=== PATIENT | female | born 1965 | race Caucasian/White ===

== ENCOUNTER 2018-03-08 13:46 | Emergency (ER) | payer BC ==
[~2018-03-08] VITALS: Ht 175.3 cm; Wt 96.9 kg
[~2018-03-08 13:46] MED LIST: ASPIR-LOW81 MG PO; PROZAC10 MG PO; TAMOXIFEN CITRA20 MG PO
[2018-03-08 15:07] LABS: HEMATOCRIT 38.5 % (36.0-46.0); HEMOGLOBIN 13.4 G/DL (11.9-15.5); MCH 32.3 PG (29.0-34.0); MCHC 34.8 G/DL (30.0-36.0); MCV 92.8 FL (83-99); PLATELET COUNT 211 K/uL (156-360); RBC DIS.WIDTH-CV 13.1 % (11.8-14.6); RBC DIS.WIDTH-SD 44.7 % (39-53); RED BLOOD COUNT 4.15 M/uL (3.80-5.20)
[2018-03-08 15:17] LABS: CHLORIDE 107 mEq/L (99-109); POTASSIUM 4.1 mEq/L (3.7-5.4); SODIUM 141 mEq/L (136-147)
[2018-03-08 15:18] LABS: GLUCOSE 97 mg/dL (70-99)
[2018-03-08 15:22] LABS: CREATININE 0.8 mg/dL (0.6-1.3); GFR ESTIMATE (CALCULATED) > 59 mL/min/
[2018-03-08 15:23] LABS: UREA NITROGEN (BUN) 11 mg/dL (9-23)
[2018-03-08 15:29] LABS: TROP-I INTERPRETATION NEGATIVE; TROPONIN-I < 0.01 ng/mL (0.0-0.30)
[2018-03-08] MEDS ORDERED: ZITHROMAX Z-PA250 MG PO (17:43)
[2018-03-08 18:05] VITALS: BP 141/93
== END 2018-03-08 18:07 | disposition home or self-care (01) ==
LOC: EME 13:46
DX: J18.9 Pneumonia, unspecified organism (principal); F41.9 Anxiety disorder, unspecified; Z85.3 Personal history of malignant neoplasm of breast; Z90.11 Acquired absence of right breast and nipple
CPT/HCPCS: 71046; 80048; 84484; 85027; 93005; 99281; 99284